=== PATIENT | male | born 1950 | race Caucasian/White ===

== ENCOUNTER → 2016-06-14 | Outpatient (CLI) | payer MEDICARE, MEDICAID ==
[2016-06-14 08:40] LABS: CHLORIDE,CL 101 mmol/L (98-110); SODIUM,NA 139 mmol/L (136-146)
== END ==
LOC: MW.CHFP 07:38
PROVIDERS: ATTEND Emergency Medicine
DX: I10 Essential (primary) hypertension (principal); E78.00 Pure hypercholesterolemia, unspecified; E11.9 Type 2 diabetes mellitus without complications; Z12.5 Encounter for screening for malignant neoplasm of prostate; E78.5 Hyperlipidemia, unspecified
CPT/HCPCS: 36415; 80053; 80061; 82044; 83036; G0103; G0463

== ENCOUNTER 2020-01-24 06:28 | Day surgery (SDC) | payer MEDICARE, MEDICAID ==
[2020-01-24] MEDS ORDERED: Lactated Ringers 1,000 ML IV SCH ×2 (07:00→09:00)
[2020-01-24] MEDS ORDERED: Glycopyrrolate 0.2 MG/ML SDV ONE (07:13)
[2020-01-24] MEDS ORDERED: Lidocaine 2% 5 ML SDV ONE (07:13)
[2020-01-24] MEDS ORDERED: Propofol 200 MG/20 ML SDV ONE ×2 (07:13→08:30)
[2020-01-24] MEDS ORDERED: Midazolam 1 MG/ML 2 ML SDV ONE (07:13)
--- NOTE | 2020-01-24 07:27 | PCM.PREANE ---
Preanesthetic Assessment - Anesthesia/Transfusion/Family Hx Anesthesia History: Prior Anesthesia Without Reaction Other Type of Anesthesia Reaction Comment: father had hard time breathing when waking up from anesthesia Family History of Anesthesia Reaction: No Transfusion History: Prior Transfusion Without Reaction - Review of Systems General: No Symptoms Pulmonary: No Symptoms Cardiovascular: No Symptoms Gastrointestinal: No Symptoms Neurological: No Symptoms Other: Reports: None - Physical Assessment NPO Status Date: 01/23/20 Height: 6 ft 1 in Weight: 102.965 kg ASA Class: 2 Mental Status: Alert & Oriented x3 Airway Class: Mallampati = 2 Dentition: Reports: Edentulous ROM/Head Extension: Full Lungs: Clear to Auscultation, Normal Respiratory Effort Cardiovascular: Regular Rate, Regular Rhythm - Allergies Allergies/Adverse Reactions: Allergies Allergy/AdvReac Type Severity Reaction Status Date / Time lisinopril Allergy Cough Verified 01/20/20 09:46 - Blood Blood Available: No - Anesthesia Plan Pre-Op Medication Ordered: None - Acknowledgements Anesthesia Type Planned: General Anesthesia (tiva) Pt an Appropriate Candidate for the Planned Anesthesia: Yes Alternatives and Risks of Anesthesia Discussed w Pt/Guardian: Yes Pt/Guardian Understands and Agrees with Anesthesia Plan: Yes Additional Comments: PMH: htn, dm2, pvod-s/p aortobifem graft PLAn: tiva PreAnesthesia Questionnaire HEENT History: Reports: Cataract, Other (See Below) Other HEENT History: has upper and lower dentures Cardiovascular History: Reports: High Cholesterol, Hypertension, PVD Respiratory History: Reports: None Gastrointestinal History: Reports: Colon Polyp, Diverticulosis Genitourinary History: Reports: Renal Calculus Other Genitourinary History: hx of passing 1 kidney stone Musculoskeletal History: Reports: Back Pain, Chronic, Neck Pain, Chronic Neurological History: Psychiatric History: Reports: None Endocrine/Metabolic History: Reports: Diabetes, Type II Other Hematologic History: had blood transfusion after bypass graft Immunologic History: Reports: None Oncologic (Cancer) History: Reports: None Dermatologic History: Reports: None - Infectious Disease History Infectious Disease History: Reports: Chicken Pox, Measles Other Infectious Disease History: states when a child - Past Surgical History Head Surgeries/Procedures: HEENT Surgical History: Reports: Cataract Surgery Cardiovascular Surgical History: Reports: Other (See Below) Other Cardiovascular Surgeries/Procedures: Aortic bifemoral bypass graft Respiratory Surgical History: Reports: None GI Surgical History: Reports: Cholecystectomy, Colonoscopy, EGD, Hernia, Abdominal Other GI Surgeries/Procedures: rectal surgery Neurological Surgical History: Reports: Discectomy, Lumbar Spine Other Neurological Surgeries/Procedures: hx lower back surgery Musculoskeletal Surgical History: Reports: Carpal Tunnel, Ganglion Cyst, Other (See Below) Other Musculoskeletal Surgeries/Procedures:: states had lower back surgery Oncologic Surgical History: Reports: None - SUBSTANCE USE Tobacco Use Status *Q: Former Tobacco User Tobacco Use Within Last Twelve Months: No - HOME MEDS Home Medications: Home Meds atorvaSTATin [Lipitor] 20 mg PO DAILY 08/31/14 [History] metFORMIN HCl [Metformin ER Osmotic] 1,000 mg PO BID 08/31/14 [History] Empagliflozin [Jardiance] 25 mg PO DAILY 11/04/19 [History] Losartan Potassium 100 mg PO QAM 11/04/19 [History] Ozempic 0.25 mg SQ WEEKLY 11/04/19 [History] hydroCHLOROthiazide [Hydrochlorothiazide] 25 mg PO QAM 11/04/19 [History] - CURRENT (IN HOUSE) MEDS Current Meds: Current Medications Lactated Ringer's (Ringers, Lactated) 1,000 mls @ 125 mls/hr IV ASDIRECTED ANALY Cefoxitin Sodium 2 gm/ Premix 50 mls @ 100 mls/hr IV ONETIME ONE Stop: 01/24/20 07:59 Discontinued Medications Glycopyrrolate (Robinul) Confirm Administered Dose 0.2 mg .ROUTE .STK-MED ONE Stop: 01/24/20 07:14 Lidocaine (Xylocaine-Mpf 2%) Confirm Administered Dose 5 ml .ROUTE .STK-MED ONE Stop: 01/24/20 07:14 Midazolam HCl (Versed 1 Mg/Ml) Confirm Administered Dose 2 mg .ROUTE .STK-MED ONE Stop: 01/24/20 07:14 Propofol (Diprivan 20 Ml) Confirm Administered Dose 400 mg .ROUTE .STK-MED ONE Stop: 01/24/20 07:14
[2020-01-24] MEDS ORDERED: cefOXitin 2 GM in Premix Bag 1 BAG IV ONE (07:30)
[2020-01-24] MEDS ORDERED: Sodium Chloride 0.9% 20 ML ONE (07:34)
[2020-01-24] MEDS ORDERED: cefOXitin 1 GM Vial ONE (07:34)
--- NOTE | 2020-01-24 09:00 | PCM.OPNOTE ---
- General Post-Op/Procedure Note Date of Surgery/Procedure: 01/24/20 Operative Procedure(s): Esophagogastroduodenoscopy with gastric and esophageal biopsies. Colonoscopy with multiple cold polypectomies from the ascending colon, descending colon, sigmoid colon 2 and rectum. Pre Op Diagnosis: Dysphagia with epigastric pain. Weight loss. Personal history of colon polyps. Change in bowel habits. Post-Op Diagnosis: Acute and chronic gastritis. Esophagitis. Colon polyps in the ascending colon, descending colon, sigmoid colon and rectum. Pancolonic diverticulosis. Anesthesia Technique: ADAMS (ASA II) Primary Surgeon: Drake Brice (ASA II) Transitional Studies Instructor: Pastor Odom Condition: Good Free Text/Narrative:: Intake & Output 01/23/20 01/24/20 01/24/20 19:59 03:59 11:59 Intake Total 900 Balance 900 DICTATION [id number] CPT CODE 68717/88816
--- NOTE | 2020-01-24 09:09 | PCM48HPAN ---
Post Anesthesia Note - EVALUATION WITHIN 48HRS OF ANESTHETIC Vital Signs in Normal Range: Yes Patient Participated in Evaluation: Yes Respiratory Function Stable: Yes Airway Patent: Yes Cardiovascular Function Stable: Yes Hydration Status Stable: Yes Pain Control Satisfactory: Yes Nausea and Vomiting Control Satisfactory: Yes Mental Status Recovered: Yes Vital Signs: Last Vital Signs Temp 97.5 F 01/24/20 07:15 Pulse 90 01/24/20 08:55 Resp 12 01/24/20 08:55 BP 97/59 L 01/24/20 08:55 Pulse Ox 93 L 01/24/20 08:55
--- NOTE | 2020-01-24 09:09 | PCM.POSTAN ---
POST ANESTHESIA ASSESSMENT - MENTAL STATUS Mental Status: Alert, Oriented - VITAL SIGNS Vital Signs: Last Vital Signs Temp 97.5 F 01/24/20 07:15 Pulse 90 01/24/20 08:55 Resp 12 01/24/20 08:55 BP 97/59 L 01/24/20 08:55 Pulse Ox 93 L 01/24/20 08:55 - RESPIRATORY Respiratory Status: Respiratory Rate WNL, Airway Patent, O2 Saturation Stable - CARDIOVASCULAR CV Status: Pulse Rate WNL, Blood Pressure Stable - GASTROINTESTINAL GI Status: No Symptoms - POST OP HYDRATION Hydration Status: Adequate & Stable
[2020-01-24 09:41] VITALS: BP 109/61; PULSE 88
--- NOTE | 2020-01-24 11:13 | OR ---
SURGEON: Drake Brice M.D. DATE OF PROCEDURE: 01/24/2020 OPERATION PERFORMED: Esophagogastroduodenoscopy with gastric and esophageal biopsies. PRIMARY SURGEON: Drake Brice M.D. TIGHT COOPER: OSMAR Gamez student. ANESTHESIA: MAC. ASA CLASSIFICATION: II. PREOPERATIVE DIAGNOSES: 1. Epigastric pain with dysphagia. 2. Unexplained weight loss. POSTOPERATIVE DIAGNOSES: 1. Moderate acute and chronic gastritis. 2. Esophagitis. DESCRIPTION OF PROCEDURE: The patient was taken to the endoscopy room and placed on the endoscopy table in the supine position. Time-out was called for appropriate identification of the patient and procedure. The bite block was placed between the patient's teeth. The gastroscope was inserted through the bite block and advanced without difficulty through the esophagus and stomach into the duodenum where examination was now carried out in a retrograde fashion. The duodenum showed no acute inflammatory changes or ulcerations. The stomach did show a fairly acute gastritis. No acute ulcerations were noted. Antral biopsies were obtained to look for the presence of Helicobacter pylori. The gastroscope was then retroflexed to visualize the proximal stomach. No ulcers or lesions were noted along the greater or lesser curvatures. The gastroscope was then straightened and slowly withdrawn. The distal esophagus did show [id number] esophagitis and separate biopsies of this area were taken. No ulcerations or tears were noted. The esophagus itself demonstrated good contractility. No mid or proximal lesions were identified. The vocal cords were briefly visualized as the scope was withdrawn. Following colonoscopy, the patient was taken to recovery room in stable condition. JESSIKA / GISELLE /[id number] LEXIS
--- NOTE | 2020-01-24 11:17 | OR ---
SURGEON: Drake Brice M.D. DATE OF PROCEDURE: 01/24/2020 OPERATION PERFORMED: Colonoscopy with multiple cold polypectomies from the ascending colon, descending colon, sigmoid colon, and rectum. CHEMIST PHYSICAL: OSMAR Gamez student. ANESTHESIA: MAC. ASA CLASSIFICATION: II. PREOPERATIVE DIAGNOSES: 1. Change in bowel habits with personal history of colon polyps. 2. Weight loss. POSTOPERATIVE DIAGNOSES: 1. Polyps identified and removed from the ascending colon, descending colon, sigmoid colon, and rectum. 2. Pancolonic diverticulosis. DESCRIPTION OF PROCEDURE: With the patient having completed upper GI endoscopy, he was now positioned in the left lateral decubitus position. The colonoscope was inserted into the rectum and advanced with minimal difficulty to the cecum. The colonoscope was retroflexed to visualize the ascending colon from below, then straightened and slowly withdrawn. The prep was quite good. One polyp was encountered in the ascending colon and removed with cold biopsy forceps. The remainder of the ascending colon, hepatic flexure, transverse colon, and splenic flexure did not show any tumors, polyps, or angiodysplastic changes. Multiple small scattered diverticula were noted throughout the colon. A second polyp was encountered in the descending colon and removed with cold biopsy forceps. Two more polyps were encountered in the proximal and mid sigmoid colon and removed and sent separately and finally a rectal polyp was identified and removed and again sent separately for histologic analysis. The colonoscope having been withdrawn to the rectum was now retroflexed to visualize the anal orifice from above. No tumors, polyps, or acute hemorrhoidal changes were noted. The colonoscope was then straightened, the rectum aspirated, and the colonoscope removed. The patient tolerated the procedure well and was taken to recovery room in satisfactory condition. JESSIKA / GISELLE /[id number]
== END 2020-01-24 09:30 | disposition home or self-care (01) ==
LOC: MW.SDS 06:28
PROVIDERS: ATTEND Surgery
DX: D12.2 Benign neoplasm of ascending colon (principal); K29.50 Unspecified chronic gastritis without bleeding; D12.4 Benign neoplasm of descending colon; D12.5 Benign neoplasm of sigmoid colon; D12.8 Benign neoplasm of rectum; K29.00 Acute gastritis without bleeding; K20.90 Esophagitis, unspecified without bleeding; K57.30 Diverticulosis of large intestine without perforation or abscess without bleeding; E78.00 Pure hypercholesterolemia, unspecified; I10 Essential (primary) hypertension; E11.9 Type 2 diabetes mellitus without complications; Z79.84 Long term (current) use of oral hypoglycemic drugs; Z79.899 Other long term (current) drug therapy; Z90.49 Acquired absence of other specified parts of digestive tract; Z98.890 Other specified postprocedural states; Z87.891 Personal history of nicotine dependence; Z86.010 Personal history of colon polyps
CPT/HCPCS: 43239; 45380; J0694; J2001; J2250; J2704; J3490; J7120

== ENCOUNTER 2020-11-22 06:40 | Emergency (ER) | payer MEDICARE, MEDICAID ==
[2020-11-22] MEDS ORDERED: Morphine 4 MG/ML Syringe IVPUSH ONE (07:25)
[2020-11-22 08:09] LABS: BLOOD UREA NITROGEN,BUN 12 mg/dL (7.0-18.0); CARBON DIOXIDE,CO2 28.7 mmol/L (21.0-32.0); CHLORIDE,CL 98 mmol/L (98-107); GLUCOSE RANDOM 215 mg/dL (74-106); LIPASE 144 U/L (73-393); SODIUM,NA 136 mmol/L (136-148)
[2020-11-22] MEDS ORDERED: Iopamidol 755 MG/ML 500 ML Multipack Bottle IVPUSH ONE (09:40)
--- NOTE | 2020-11-22 10:24 | CT ---
HISTORY: Left upper quadrant abdominal pain. COMPARISON: 10/11/2019. TECHNIQUE: CT of the abdomen and pelvis. Coronal/sagittal reconstruction images. 100 cc of [id number] IV. FINDINGS: Lung bases: Coronary artery calcifications. There is no pleural or pericardial effusion. There is no acute airspace disease. There is no suspicious pulmonary nodule. There is no basilar pneumothorax. Abdomen/pelvis: Liver morphology appears cirrhotic, with a nodular surface. There is no solid hepatic mass. There is no portal vein thrombosis. The splenic vein and SMV are patent. No splenomegaly. No adrenal mass. Cholecystectomy. There is no pancreatic mass or glandular atrophy. Calcifications are present within the uncinate process of the pancreas. The nephrograms are symmetric. There is no solid renal mass. There is no perinephric fluid collection. The prostate and urinary bladder are normal. There is no mural thickening in the small bowel or colon. There is no mucosal hyper enhancement. There is no transition point. Moderate constipation. No evidence for appendicitis. There is no inguinal or pelvic sidewall lymphadenopathy. Presumably, the patient has undergone a prior aortobifemoral bypass. 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 There is also focal dilation in a separate infrarenal segment measuring 26 mm. This is unchanged. Postoperative changes in the anterior abdominal wall, presumably from a prior ventral wall hernia repair. The bone windows demonstrate bridging osteophytes at the left SI joint. There is degenerative disc disease in the lower thoracic and lumbar spine. The vertebral body heights are maintained on sagittal reconstruction images. IMPRESSION: 1. No acute findings are seen to explain left upper quadrant abdominal pain. 2. There is no mural thickening, perienteric edema, pneumatosis, portal venous gas, or drainable fluid collection. 3. Cholecystectomy. Normal caliber biliary tree. 4. No abdominal or pelvic lymphadenopathy by size criteria. Please note that all CT scans at this facility use dose modulation, iterative reconstruction, and/or weight-based dosing when appropriate to reduce radiation dose to as low as reasonably achievable. Dictated by Vin Riley MD @ 11/22/2020 10:22:[address] Vin Riley @ Nov 22 2020 10:22AM
--- NOTE | 2020-11-22 10:51 | EDM.PDOC ---
ED HPI GENERAL MEDICAL PROBLEM - General Chief Complaint: Abdominal Pain Stated Complaint: PAIN IN MY LEFT SIDE Time Seen by Provider: 11/22/20 07:05 - History of Present Illness INITIAL COMMENTS - FREE TEXT/NARRATIVE: CHIEF COMPLAINT(S): "I have terrible, terrible, terrible, terrible, terrible pain." HISTORY OF PRESENT ILLNESS: This is a 70-year-old man with a colonoscopy earlier this year and a past medical history of diabetes mellitus and hypertension who comes to the emergency department with a chief complaint of "I have terrible, terrible, terrible, terrible, terrible pain." Patient states that he is having terrible pain. He states that it is right here. He points to his left upper quadrant. He states that it feels like gas is leaking out of his colon and up into his chest and into his back. When asked how the pain feels he describes it as burning like mud puddles with steam. He rates the pain as 7 out of 10 and constant and has not changed. He states that is there 17/10. He states nothing relieves it. Nothing exacerbates it. He states that he tried Tums, Rolaids, Pepto-Bismol, omeprazole and nothing seems to be helping. He states that this pain has been there since he got his colonoscopy approximately 8 to 10 months ago. He denies any hematemesis, melena or hematochezia. He states he has been tolerating food without any issues. REVIEW OF SYSTEMS: Constitutional: Denies fever, chills. Eyes: Denies eye pain Ears, Nose, Mouth, & Throat: Denies earache Cardiovascular: Denies chest pain Respiratory: Denies shortness of breath Gastrointestinal: Positive for abdominal pain. Denies nausea, vomiting, diarrhea, hematochezia, hematemesis, bilious emesis, melena Genitourinary: Denies hematuria Skin:Denies a rash MSK: Denies joint pain Neurological: Denies blurred vision Psychiatric: Denies depression PAST MEDICAL HISTORY: As per history of present illness and as reviewed below otherwise noncontributory. SURGICAL HISTORY: As per history of present illness and as reviewed below otherwise noncontributory. SOCIAL HISTORY: As per history of present illness and as reviewed below otherwise noncontributory. FAMILY HISTORY: As per history of present illness and as reviewed below otherwise noncontributory. EXAMINATION OF ORGAN SYSTEMS/BODY AREAS: Constitutional: Blood pressure is 126/83, heart rate 101, respiratory rate 18 with an oxygen saturation of 96% on room air. Temperature 37.0. General: Overall well-appearing man who is in no acute distress Psychiatric: Appropriate mood and affect. Eyes: No scleral icterus or conjunctival erythema ENMT: Moist mucous membranes. No pharyngeal erythema Cardiovascular: Regular, rate, and rhythm. No gallops, murmurs, or rubs. Bilateral upper extremity pulses symmetric and intact. No peripheral edema. No JVD. Respiratory: Lungs clear to auscultation bilaterally. No wheezes, rales, or rhonchi. Gastrointestinal: Soft, non-tender, non-distended. Normoactive bowel sounds no rebound or guarding. Genitourinary: No suprapubic tenderness Musculoskeletal: Normal range of motion. Skin: No lesions or abrasions. Neurological: Alert, GCS 15 MEDICAL DECISION MAKING AND COURSE IN THE ED WITH INTERPRETATION/REVIEW OF DIAGNOSTIC STUDIES: This is a 70-year-old man with a past medical history of diabetes mellitus and hypertension who comes to the emergency department with acute on chronic abdominal pain who has mild tachycardia and an unrevealing examination. At this time we will provide the patient with morphine for pain relief and obtain labs including CBC, CMP, lipase. Will obtain a CT abdomen pelvis with contrast. Differential is broad at this time as the patient's exam is nonfocal this could be gastritis, GERD, pancreatitis, peptic ulcer disease, appendicitis, cholecystitis. Laboratory: Glucose was elevated at 211. CBC is unremarkable. CMP reveals hyperglycemia at 215 and elevated bilirubin of 1.1. The radiological images were viewed by myself along with reading the report from the radiologist. CT abdomen pelvis with contrast does not reveal any acute intra-abdominal pathology. His aortic aneurysm has not changed. On reevaluation I discussed the results with patient. Encourage the patient to follow-up with his primary care physician for further reevaluation and possible referral for GI. He is to return for any new or worsening symptoms. He was amenable to discharge at this time and had no further questions DISPOSITION: The patient was discharged home in stable condition. The patient will follow up with primary care physician in 3 to 5 days CONDITION: Fair PROCEDURES: None FINAL IMPRESSION(S)/DIAGNOSES: 1. Acute abdominal pain Alireza Stubbs M.D. Left Upper Abdomen Pain Score (Numeric/FACES): 7 - Related Data Allergies Allergy/AdvReac Type Severity Reaction Status Date / Time lisinopril Allergy Cough Verified 11/22/20 07:01 Home Meds: Home Meds atorvaSTATin [Lipitor] 20 mg PO DAILY 08/31/14 [History] metFORMIN HCl [Metformin ER Osmotic] 1,000 mg PO BID 08/31/14 [History] Empagliflozin [Jardiance] 25 mg PO DAILY 11/04/19 [History] Losartan Potassium 100 mg PO QAM 11/04/19 [History] Ozempic 50 mcg SQ WEEKLY 11/04/19 [History] hydroCHLOROthiazide [Hydrochlorothiazide] 25 mg PO QAM 11/04/19 [History] Pantoprazole [ProTONIX] 40 mg PO DAILY #14 tab.cr 11/22/20 [Rx] Past Medical History HEENT History: Reports: Cataract, Other (See Below) Other HEENT History: has upper and lower dentures Cardiovascular History: Reports: High Cholesterol, Hypertension, PVD Respiratory History: Reports: None Gastrointestinal History: Reports: Colon Polyp, Diverticulosis Genitourinary History: Reports: Renal Calculus Other Genitourinary History: hx of passing 1 kidney stone Musculoskeletal History: Reports: Back Pain, Chronic, Neck Pain, Chronic Neurological History: Reports: None Psychiatric History: Reports: None Endocrine/Metabolic History: Reports: Diabetes, Type II Hematologic History: Reports: Other (See Below) Other Hematologic History: had blood transfusion after bypass graft Immunologic History: Reports: None Oncologic (Cancer) History: Reports: None Dermatologic History: Reports: None - Infectious Disease History Infectious Disease History: Reports: Chicken Pox, Measles Other Infectious Disease History: states when a child - Past Surgical History HEENT Surgical History: Reports: Cataract Surgery Cardiovascular Surgical History: Reports: Other (See Below) Other Cardiovascular Surgeries/Procedures: Aortic bifemoral bypass graft Respiratory Surgical History: Reports: None GI Surgical History: Reports: Cholecystectomy, Colonoscopy, EGD, Hernia, Abdominal Other GI Surgeries/Procedures: rectal surgery Neurological Surgical History: Reports: Discectomy, Lumbar Spine Other Neurological Surgeries/Procedures: hx lower back surgery Musculoskeletal Surgical History: Reports: Carpal Tunnel, Ganglion Cyst, Other (See Below) Other Musculoskeletal Surgeries/Procedures:: states had lower back surgery Oncologic Surgical History: Reports: None Social & Family History - Tobacco Use Tobacco Use Status *Q: Never Tobacco User Second Hand Smoke Exposure: No - Recreational Drug Use Recreational Drug Use: No ED ROS GENERAL - Review of Systems Review Of Systems: See Below ED EXAM, GENERAL - Physical Exam Exam: See Below Course - Vital Signs Last Recorded V/S: Last Vital Signs Temp 37.0 C 11/22/20 07:02 Pulse 88 11/22/20 11:09 Resp 18 11/22/20 11:09 BP 125/79 11/22/20 11:09 Pulse Ox 95 11/22/20 11:09 - Orders/Labs/Meds Labs: Laboratory Tests 11/22/20 11/22/20 11/22/20 Range/Units 07:19 07:37 07:37 WBC 6.08 (4.0-11.0) K/uL RBC 4.99 (4.50-5.90) M/uL Hgb 16.1 (13.0-17.0) g/dL Hct 44.7 (38.0-50.0) % MCV 89.6 (80.0-98.0) fL MCH 32.3 H (27.0-32.0) pg MCHC 36.0 (31.0-37.0) g/dL RDW Std Deviation 44.5 (28.0-62.0) fl RDW Coeff of Kate 14 (11.0-15.0) % Plt Count 176 (150-400) K/uL MPV 9.90 (7.40-12.00) fL Neut % (Auto) 41.3 L (48.0-80.0) % Lymph % (Auto) 42.1 H (16.0-40.0) % Hooker % (Auto) 10.4 (0.0-15.0) % Eos % (Auto) 5.4 (0.0-7.0) % Baso % (Auto) 0.8 (0.0-1.5) % Neut # (Auto) 2.5 (1.4-5.7) K/uL Lymph # (Auto) 2.6 H (0.6-2.4) K/uL Hooker # (Auto) 0.6 (0.0-0.8) K/uL Eos # (Auto) 0.3 (0.0-0.7) K/uL Baso # (Auto) 0.1 (0.0-0.1) K/uL Nucleated RBC % 0.0 /100WBC Nucleated RBCs # 0 K/uL Sodium 136 (136-148) mmol/L Potassium 4.0 (3.5-5.1) mmol/L Chloride 98 (98-107) mmol/L Carbon Dioxide 28.7 (21.0-32.0) mmol/L BUN 12 (7.0-18.0) mg/dL Creatinine 0.9 (0.8-1.3) mg/dL Est Cr Clr Drug Dosing 81.43 mL/min Estimated GFR (MDRD) > 60.0 ml/min Glucose 215 H (74-106) mg/dL POC Glucose 211 H (70-99) mg/dL Calcium 9.3 (8.5-10.1) mg/dL Magnesium 2.2 (1.8-2.4) mg/dL Total Bilirubin 1.1 H (0.2-1.0) mg/dL AST 31 (15-37) IU/L ALT 42 (14-63) IU/L Alkaline Phosphatase 112 (46-116) U/L Total Protein 7.3 (6.4-8.2) g/dL Albumin 3.8 (3.4-5.0) g/dL Globulin 3.5 (2.6-4.0) g/dL Albumin/Globulin Ratio 1.1 (0.9-1.6) Lipase 144 (73-393) U/L Meds: Medications Discontinued Medications Generic Name Dose Route Start Last Admin Trade Name Freq PRN Reason Stop Dose Admin Iopamidol 100 ml 11/22/20 09:40 11/22/20 09:41 Iopamidol 755 Mg/Ml 500 Ml Multipack Bottle IVPUSH 11/22/20 09:41 100 ml ONETIME ONE Administration Morphine Sulfate 4 mg 11/22/20 07:25 11/22/20 07:47 Morphine 4 Mg/Ml Syringe IVPUSH 11/22/20 07:26 4 mg ONETIME ONE Administration Departure - Departure Time of Disposition: 10:49 Disposition: Home, Self-Care 01 Condition: Fair Clinical Impression: Esophagitis, Gastritis - Discharge Information *PRESCRIPTION DRUG MONITORING PROGRAM REVIEWED*: No *COPY OF PRESCRIPTION DRUG MONITORING REPORT IN PATIENT LOW: No Prescriptions: Pantoprazole [ProTONIX] 40 mg PO DAILY #14 tab.cr Instructions: Gastritis, Adult, [id number], Esophagitis Referrals: Montez Cameron MD [Primary Care Provider] - Forms: ED Department Discharge Additional Instructions: Your evaluated today on an emergent basis. At this time your imaging was unchanged from prior. Given your history of inflammation of your esophagus and your stomach called esophagitis and gastritis I do believe this is the pain you are experiencing. You are already on omeprazole. Therefore at this time let us trial pantoprazole daily and I want you to follow-up with your primary care physician within 5 to 7 days for reevaluation. As discussed you may need a referral for gastroenterology if you have continued pain and issues. Please return to the emergency department if you have any blood in your stool, blood in your vomit, or have worsening abdominal pain. [facility] [address] [place] [address] [place] [address] The patient is informed of any results of their evaluation and diagnostic workup and all questions are answered. They are given discharge instructions and return precautions. The patient is stable for discharge. The patient states they understand and agree with the plan and that they will return if their symptoms get worse or if they have any new concerns. The following information is given to patients seen in the emergency department who are being discharged to home. This information is to outline your options for follow-up care. We provide all patients seen in our emergency department with a follow-up referral. The need for follow-up, as well as the timing and circumstances, are variable depending upon the specifics of your emergency department visit. If you don't have a primary care physician on staff, we will provide you with a referral. We always advise you to contact your personal physician following an emergency department visit to inform them of the circumstance of the visit and for follow-up with them and/or the need for any referrals to a consulting specialist. The emergency department will also refer you to a specialist when appropriate. This referral assures that you have the opportunity for follow-up care with a specialist. All of these measure are taken in an effort to provide you with optimal care, which includes your follow-up. Under all circumstances we always encourage you to contact your private physician who remains a resource for coordinating your care. When calling for follow-up care, please make the office aware that this follow-up is from your recent emergency room visit. If for any reason you are refused follow-up, please contact the [facility] Emergency Department at and asked to speak to the emergency department charge nurse.
[2020-11-22 11:15] VITALS: BP 125/79; PULSE 88
== END 2020-11-22 11:09 | disposition home or self-care (01) ==
LOC: MW.ED 06:40
DX: K29.70 Gastritis, unspecified, without bleeding (principal); K20.90 Esophagitis, unspecified without bleeding; E11.9 Type 2 diabetes mellitus without complications; I10 Essential (primary) hypertension; Z88.8 Allergy status to other drugs, medicaments and biological substances; Z79.899 Other long term (current) drug therapy; Z79.84 Long term (current) use of oral hypoglycemic drugs
CPT/HCPCS: 36415; 74177; 80053; 82947; 83690; 83735; 85025; 96374; 99284; J2270; Q9967; 99283

== ENCOUNTER 2021-04-03 05:01 | Emergency (ER) | payer MEDICARE, MEDICAID ==
--- NOTE | 2021-04-03 05:48 | EDM.PDOC ---
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 The patient states that approximately 12 hours prior to arrival he started to experience [place]-sided [place] He states that he noticed it when he stood up and noticed that his left arm and left leg were weak. He denies any trouble seeing, headache, falls or any other injury. He denies any use of anticoagulation. He denies any chest pain, palpitations, lo wer extremity edema, recent travel, recent surgery or prior history of DVT or PE. States that he has never had a stroke before. She denies any CAD or CHF REVIEW OF SYSTEMS: Constitutional: Denies fever, chills. Eyes: Denies eye pain Ears, Nose, Mouth, & Throat: Denies earache Cardiovascular: Denies chest pain Respiratory: Denies shortness of breath Gastrointestinal: Denies Nausea, vomiting, diarrhea, hematochezia. Genitourinary: Denies hematuria Skin:Denies a rash Neurological: Positive for left arm and left leg weakness. Denies trouble speaking, swallowing. Denies any double vision or loss of vision. Psychiatric: Denies depression PAST MEDICAL HISTORY: As per history of present illness and as reviewed below otherwise noncontributory. SURGICAL HISTORY: As per history of present illness and as reviewed below otherwise noncontributory. SOCIAL HISTORY: As per history of present illness and as reviewed below otherwise noncontributory. FAMILY HISTORY: As per history of present illness and as reviewed below otherwise noncontributory. EXAMINATION OF ORGAN SYSTEMS/BODY AREAS: VITALS:. GENERAL: The patient is well-nourished, well-developed, in no acute distress. HEAD: Normocephalic, atraumatic. EYES: EOMs intact. PERRL. ENT. External ears WNL. Nares patent. Oropharynx is clear with no erythema or exudate. No uvular or tongue swelling. NECK: Supple, no masses. Trachea is midline. LUNGS: No tachypnea or intercostal retractions. Clear to auscultation bilaterally, no wheezing, no rales, no stridor, no rhonchi. CARDIOVASCULAR: Regular rate and rhythm with S1-S2. No murmur, rubs or gallops. No edema. No JVD. ABDOMEN: Soft, non-distended, non-tender. Bowel sounds present in all 4 quadrants. No rebound tenderness, guarding, or peritoneal signs. MUSCULOSKELETAL: No deformity. Patient is moving all 4 limbs spontaneously. NEUROLOGICAL: The patient is alert and oriented x4. Patient's face at rest has a left-sided facial droop however when actively smiling there does not appear to be any facial droop. Otherwise NIH stroke scale is five four obvious droop at rest on the left side of the face, left arm weakness, left leg weakness, and mild slurring of the speech. SKIN: No rashes, or pallor. No signs of injury. MEDICAL DECISION MAKING AND COURSE IN THE ED WITH INTERPRETATION/REVIEW OF DIAGNOSTIC STUDIES: This is a 71-year-old man with a past medical history of diabetes mellitus, hypertension and prior history of aortic bypass who presents to the emergency department as a medical resuscitation via walk-in triage with a chief complaint of left arm and left leg weakness. Immediately upon entering the resuscitation room the patient was disrobed, placed on continuous cardiac monitoring, and IV access was established by nursing. Patient is able to speak thus displaying a patent airway, breath sounds are equal bilaterally, and patient has palpable pulses in all 4 extremities. [id number] glucose was found to be elevated. NIH stroke scale is five. The patient is outside the TPA window however we will undergo a stroke work-up. Will obtain CT head and CTA of the head and neck. Obtain labs including CBC, CMP, chest x-ray and place the patient on cardiac monitoring and pulse oximetry. Cardiac monitoring at this time did reveal sinus rhythm and pulse oximetry with good waveform was 98% on room air. Laboratory: CBC is unremarkable. INR is normal. CMP reveals hyperglycemia at 263 otherwise unremarkable. There is mild elevation in total bilirubin at 1.8. Troponin is negative. TSH is 2.8. Covid is positive. Influenza is negative The radiological images were viewed by myself along with reading the report from the radiologist. CT head without contrast does not reveal any acute intracranial abnormality. No sign of mass lesion, mass-effect or hemorrhage. There is moderate right and mild left mastoid effusion consistent with mastoiditis. This is a normal noncontrast CT of the head. CTA of the head and neck does not reveal any large vessel occlusion or aneurysm. Chest x-ray does not reveal any acute cardiopulmonary process. After labs and imaging I did contact [facility] and spoke with neurologist Dr. Toney who at this time recommended transfer and to start the patient on aspirin and Plavix. At this time there is no evidence of any large vessel occlusion therefore there is no need for thrombectomy. He did recommend MRI. Therefore I did discuss this with the ER physician Dr. Grimaldo who also accepted the patient for transfer. I did discuss the results with the patient I did discuss transfer to [facility] in [place]. He was amenable to this plan. At this time given no emergent intervention the patient will be transferred via ALS ambulance. At this time there is no available ambulance for 2 hours. The patient was signed out to [facility] day team physician pending transfer DISPOSITION: Patient was signed out to [facility] day team physician pending transfer to [facility] CONDITION: Fair FINAL IMPRESSION(S)/DIAGNOSES: 1. Acute cerebrovascular accident 2. Acute COVID-19 infection Critical Care Procedure Note Authorized and performed by: Alireza Stubbs M.D. Critical Care Time: 35 minutes Due to a high probability of clinically significant, life threatening deterioration, the patient required my highest level of preparedness to intervene emergently and I personally spent this critical care time directly and personally managing the patient. This critical care time included obtaining a history, examining the patient, pulse oximetry; ordering and review of studies; arranging urgent treatment with development of a management plan; evaluation of a patients reponse to treatment; frequent assessment; and discussions with other providers. This critical care time was performed to assess and manage the high probability of imminent, life threatening deterioration that could result in multiorgan failure. It was exclusive of separate billable procedures and treating other patients. Please see MDM section and rest of the note for further information on patient assessment and treatment. Please see MDM section and rest of the note for further information on patient assessment and treatment. - Related Data Allergies Allergy/AdvReac Type Severity Reaction Status Date / Time lisinopril Allergy Cough Verified 04/03/21 05:52 Home Meds: Home Meds atorvaSTATin [Lipitor] 20 mg PO DAILY 08/31/14 [History] metFORMIN HCl [Metformin ER Osmotic] 1,000 mg PO BID 08/31/14 [History] Empagliflozin [Jardiance] 25 mg PO DAILY 11/04/19 [History] Losartan Potassium 100 mg PO QAM 11/04/19 [History] Ozempic 50 mcg SQ WEEKLY 11/04/19 [History] hydroCHLOROthiazide [Hydrochlorothiazide] 25 mg PO QAM 11/04/19 [History] Pantoprazole [ProTONIX] 40 mg PO DAILY #14 tab.cr 11/22/20 [Rx] Past Medical History HEENT History: Reports: Cataract, Other (See Below) Other HEENT History: has upper and lower dentures Cardiovascular History: Reports: High Cholesterol, Hypertension, PVD Respiratory History: Reports: None Gastrointestinal History: Reports: Colon Polyp, Diverticulosis Genitourinary History: Reports: Renal Calculus Other Genitourinary History: hx of passing 1 kidney stone Musculoskeletal History: Reports: Back Pain, Chronic, Neck Pain, Chronic Neurological History: Reports: None Psychiatric History: Reports: None Endocrine/Metabolic History: Reports: Diabetes, Type II Hematologic History: Reports: Other (See Below) Other Hematologic History: had blood transfusion after bypass graft Immunologic History: Reports: None Oncologic (Cancer) History: Reports: None Dermatologic History: Reports: None - Infectious Disease History Infectious Disease History: Reports: Chicken Pox, Measles Other Infectious Disease History: states when a child - Past Surgical History HEENT Surgical History: Reports: Cataract Surgery Cardiovascular Surgical History: Reports: Other (See Below) Other Cardiovascular Surgeries/Procedures: Aortic bifemoral bypass graft Respiratory Surgical History: Reports: None GI Surgical History: Reports: Cholecystectomy, Colonoscopy, EGD, Hernia, Abdo kp Other GI Surgeries/Procedures: rectal surgery Neurological Surgical History: Reports: Discectomy, Lumbar Spine Other Neurological Surgeries/Procedures: hx lower back surgery Musculoskeletal Surgical History: Reports: Carpal Tunnel, Ganglion Cyst, Other (See Below) Other Musculoskeletal Surgeries/Procedures:: states had lower back surgery Oncologic Surgical History: Reports: None ED ROS GENERAL - Review of Systems Review Of Systems: See Below ED EXAM, GENERAL - Physical Exam Exam: See Below Departure - Departure Time of Disposition: 06:24 Disposition: DC/Tfer to Acute Hospital 02 Condition: Fair Clinical Impression: Cerebrovascular accident (CVA) Qualifiers: CVA mechanism: unspecified Qualified Code(s): I63.9 - Cerebral infarction, unspecified - Discharge Information Referrals: PCP,None [Primary Care Provider] - Forms: ED Department Discharge <Romero Cabrera Tessy - Last Filed: 04/03/21 08:44> Course - Vital Signs Last Recorded V/S: Last Vital Signs Temp 97.8 F 04/03/21 05:06 Pulse 84 04/03/21 07:58 Resp 20 04/03/21 07:58 BP 147/87 H 04/03/21 07:58 Pulse Ox 95 04/03/21 07:58 Orthostatic Blood Pressure [ 97/52 Standing] Orthostatic Blood Pressure [ 125/75 Sitting] Orthostatic Blood Pressure [ 117/64 Supine] - Orders/Labs/Meds Orders: Active Orders 24 hr Category Date Time Status Cardiac Monitoring [RC] . DIRECTED Care 04/03/21 05:18 Active Orthostatic Vital Signs [RC] ASDIRECTED Care 04/03/21 05:18 Active Labs: Laboratory Tests 04/03/21 04/03/21 04/03/21 Range/Units 05:20 05:20 05:20 WBC 9.93 (4.0-11.0) K/uL RBC 5.11 (4.50-5.90) M/uL Hgb 16.3 (13.0-17.0) g/dL Hct 45.9 (38.0-50.0) % MCV 89.8 (80.0-98.0) fL MCH 31.9 (27.0-32.0) pg MCHC 35.5 (31.0-37.0) g/dL RDW Std Deviation 44.1 (28.0-62.0) fl RDW Coeff of Kate 13 (11.0-15.0) % Plt Count 191 (150-400) K/uL MPV 10.40 (7.40-12.00) fL Neut % (Auto) 65.6 (48.0-80.0) % Lymph % (Auto) 27.3 (16.0-40.0) % [place] % (Auto) 6.5 (0.0-15.0) % Eos % (Auto) 0.4 (0.0-7.0) % Baso % (Auto) 0.2 (0.0-1.5) % Neut # (Auto) 6.5 H (1.4-5.7) K/uL Lymph # (Auto) 2.7 H (0.6-2.4) K/uL [place] # (Auto) 0.7 (0.0-0.8) K/uL Eos # (Auto) 0.0 (0.0-0.7) K/uL Baso # (Auto) 0.0 (0.0-0.1) K/uL Nucleated RBC % 0.0 /100WBC Nucleated RBCs # 0 K/uL INR 1.06 Sodium 137 (136-148) mmol/L Potassium 3.6 (3.5-5.1) mmol/L Chloride 99 (98-107) mmol/L Carbon Dioxide 21.0 (21.0-32.0) mmol/L BUN 16 (7.0-18.0) mg/dL Creatinine 1.0 (0.8-1.3) mg/dL Est Cr Clr Drug Dosing TNP Estimated GFR (MDRD) > 60.0 ml/min Glucose 263 H (74-106) mg/dL Calcium 10.2 H (8.5-10.1) mg/dL Total Bilirubin 1.8 H (0.2-1.0) mg/dL AST 21 (15-37) IU/L ALT 27 (14-63) IU/L Alkaline Phosphatase 97 (46-116) U/L Troponin I < 0.050 (0.000-0.056) ng/mL Total Protein 7.7 (6.4-8.2) g/dL Albumin 3.9 (3.4-5.0) g/dL Globulin 3.8 (2.6-4.0) g/dL Albumin/Globulin Ratio 1.0 (0.9-1.6) TSH, Ultra Sensitive 2.80 (0.36-3.74) uIU/mL Influenza Type A RNA (NEGATIVE) Influenza Type B RNA (NEGATIVE) SARS-CoV-2 RNA (MARKUS) (NEGATIVE) 04/03/21 Range/Units 05:56 WBC (4.0-11.0) K/uL RBC (4.50-5.90) M/uL Hgb (13.0-17.0) g/dL Hct (38.0-50.0) % MCV (80.0-98.0) fL MCH (27.0-32.0) pg MCHC (31.0-37.0) g/dL RDW Std Deviation (28.0-62.0) fl RDW Coeff of Kate (11.0-15.0) % Plt Count (150-400) K/uL MPV (7.40-12.00) fL Neut % (Auto) (48.0-80.0) % Lymph % (Auto) (16.0-40.0) % [place] % (Auto) (0.0-15.0) % Eos % (Auto) (0.0-7.0) % Baso % (Auto) (0.0-1.5) % Neut # (Auto) (1.4-5.7) K/uL Lymph # (Auto) (0.6-2.4) K/uL [place] # (Auto) (0.0-0.8) K/uL Eos # (Auto) (0.0-0.7) K/uL Baso # (Auto) (0.0-0.1) K/uL Nucleated RBC % /100WBC Nucleated RBCs # K/uL INR Sodium (136-148) mmol/L Potassium (3.5-5.1) mmol/L Chloride (98-107) mmol/L Carbon Dioxide (21.0-32.0) mmol/L BUN (7.0-18.0) mg/dL Creatinine (0.8-1.3) mg/dL Est Cr Clr Drug Dosing Estimated GFR (MDRD) ml/min Glucose (74-106) mg/dL Calcium (8.5-10.1) mg/dL Total Bilirubin (0.2-1.0) mg/dL AST (15-37) IU/L ALT (14-63) IU/L Alkaline Phosphatase (46-116) U/L Troponin I (0.000-0.056) ng/mL Total Protein (6.4-8.2) g/dL Albumin (3.4-5.0) g/dL Globulin (2.6-4.0) g/dL Albumin/Globulin Ratio (0.9-1.6) TSH, Ultra Sensitive (0.36-3.74) uIU/mL Influenza Type A RNA NEGATIVE (NEGATIVE) Influenza Type B RNA NEGATIVE (NEGATIVE) SARS-CoV-2 RNA (MARKUS) POSITIVE H (NEGATIVE) Meds: Medications Discontinued Medications Generic Name Dose Route Start Last Admin Trade Name Freq PRN Reason Stop Dose Admin Aspirin 324 mg 04/03/21 06:08 04/03/21 06:35 Aspirin 81 Mg Tab.Chew PO 04/03/21 06:09 324 mg ONETIME ONE Administration Clopidogrel Bisulfate 150 mg 04/03/21 06:09 04/03/21 06:36 Clopidogrel 75 Mg Tab PO 04/03/21 06:10 150 mg ONETIME ONE Administration Iopamidol 100 ml 04/03/21 05:58 04/03/21 05:59 Iopamidol 755 Mg/Ml 500 Ml Multipack Bottle IVPUSH 04/03/21 05:59 100 ml ONETIME ONE Administration - Re-Assessments/Exams Free Text/Narrative Re-Assessment/Exam: 04/03/21 07:00 Patient care transitioned from night-team physician Dr. Stubbs pending transfer to [facility] for CVA. 04/03/21 08:44 EMS arrived for patient transport. Patient stable at time of transfer without new symptoms. Sepsis Event Note (ED) - Focused Exam Vital Signs: Vital Signs Temp Pulse Resp BP Pulse Ox 04/03/21 07:58 84 20 147/87 H 95 04/03/21 07:08 78 16 137/84 94 L 04/03/21 05:06 97.8 F 104 H 18 159/80 H 97
--- NOTE | 2021-04-03 05:50 | CT ---
INDICATION: Left-sided weakness beginning 12 hours ago. COMPARISON: None available. TECHNIQUE: CT examination of the head was performed with 2 and 5 mm thick axial and 2 mm thick coronal and sagittal sections without intravenous contrast. Images were obtained from the vertex of the skull through the skull base, and I examined the images with the brain and bone windows. Please note that all CT scans at this facility use dose modulation, iterative reconstruction, and/or weight-based dosing when appropriate to reduce radiation dose to as low as reasonably achievable. FINDINGS: : The brain is normal in appearance for the patient`s age on today`s study, with no sign of mass lesion, mass effect, hemorrhage, or edema. There is moderate dilatation of the ventricles and sulci representing moderate, age-appropriate atrophy. The visualized portions of the orbits are normal in appearance status post cataract surgery. The visualized portions of the paranasal sinuses are clear. There are moderate right and mild left mastoid effusions consistent with mastoiditis. The osseous structures are normal in their appearance with no sign of abnormality in the skull base or calvarium. There is cerumen in the external auditory canals bilaterally, prominent on the right and moderate on the left. IMPRESSION: Normal noncontrast CT of the head for the patient`s age. Moderate, age-appropriate atrophy. Moderate right and mild left mastoid effusions consistent with mastoiditis. Please note that all CT scans at this facility use dose modulation, iterative reconstruction, and/or weight-based dosing when appropriate to reduce radiation dose to as low as reasonably achievable. Dictated by Elmer Marino MD @ 04/03/2021 5:49:31 AM (Electronically Signed)
--- NOTE | 2021-04-03 05:55 | CT ---
DATE: 04/03/2021. CLINICAL HISTORY: Left-sided weakness. TECHNIQUE: Standard helical CT image acquisition through the head and neck was performed after intravenous contrast bolus enhancement. Multiplanar reconstructed images were performed and interpreted. COMPARISON: None available. FINDINGS: The origins of the great vessels from the aortic arch are patent. The origins of the right and left vertebral arteries are patent. The common carotid arteries are patent. No significant luminal stenoses of the proximal internal carotid arteries by NASCET criteria. The more distal cervical segments of the internal carotid arteries are patent. The cervical segments of the vertebral arteries are patent. No intracranial proximal large vessel occlusion or flow-limiting luminal stenosis. The visualized lung apices are unremarkable. The thyroid gland is unremarkable. Degenerative changes of the cervical spine. IMPRESSION: 1. No intracranial proximal large vessel occlusion or flow-limiting luminal stenosis. 2. Patent cervical arterial vasculature without hemodynamically significant luminal stenosis. Please note that all CT scans at this facility use dose modulation, iterative reconstruction, and/or weight-based dosing when appropriate to reduce radiation dose to as low as reasonably achievable. Dictated by Steve Jimenez MD @ 04/03/2021 8:24:12 AM (Electronically Signed)
--- NOTE | 2021-04-03 05:57 | CR ---
INDICATION: Left-sided weakness. COMPARISON: Chest two views from 07/08/2009 FINDINGS: An erect single view of the chest was obtained at 0535 hours. The lungs remain clear. No focal or diffuse infiltrates are present. The heart remains normal in size. The mediastinum is normal in appearance. The osseous structures are normal in appearance for the patient`s age. IMPRESSION: Normal chest single view. Dictated by Elmer Marino MD @ 04/03/2021 5:56:50 AM (Electronically Signed)
[2021-04-03] MEDS ORDERED: Iopamidol 755 MG/ML 500 ML Multipack Bottle IVPUSH ONE (05:58)
--- NOTE | 2021-04-03 06:02 | PCM.EKG ---
#1 Interpretation EKG Date: 04/03/21 Time: 05:40 Rhythm: NSR Rate (Beats/Min): 89 [place]: Normal P-Wave: Present QRS: Normal ST-T: Normal QT: Normal Comparison: No Change (10/08/14) EKG Interpretation Comments: Sinus Rhythm with occasional PVC
[2021-04-03 06:03] LABS: BLOOD UREA NITROGEN,BUN 16 mg/dL (7.0-18.0); CHLORIDE,CL 99 mmol/L (98-107); GLUCOSE RANDOM 263 mg/dL (74-106); POTASSIUM,K 3.6 mmol/L (3.5-5.1); SODIUM,NA 137 mmol/L (136-148)
[2021-04-03] MEDS ORDERED: Aspirin 81 MG Tab.Chew PO ONE (06:08)
[2021-04-03] MEDS ORDERED: Clopidogrel 75 MG Tab PO ONE (06:09)
[2021-04-03 06:39] LABS: CORONAVIRUS COVID-19 NAA POSITIVE (NEGATIVE); INFLUENZA A NAA NEGATIVE (NEGATIVE); INFLUENZA B NAA NEGATIVE (NEGATIVE)
[2021-04-03 08:06] VITALS: BP 147/87; PULSE 84
== END 2021-04-03 09:00 ==
LOC: MW.ED 05:01
DX: I63.9 Cerebral infarction, unspecified (principal); U07.1 COVID-19; E78.00 Pure hypercholesterolemia, unspecified; I10 Essential (primary) hypertension; E11.9 Type 2 diabetes mellitus without complications; Z88.8 Allergy status to other drugs, medicaments and biological substances; Z79.899 Other long term (current) drug therapy; Z79.84 Long term (current) use of oral hypoglycemic drugs
CPT/HCPCS: 0240U; 36415; 70450; 70496; 70498; 71045; 80053; 84443; 84484; 85025; 85610; 93005; 99285; A9270; Q9967

== ENCOUNTER 2021-04-06 08:46 | Emergency (ER) | payer MEDICARE, MEDICAID ==
[2021-04-06 08:54] VITALS: BP 113/77; PULSE 102
== END 2021-04-06 09:21 | disposition home or self-care (01) ==
LOC: MW.ED 08:46
DX: G45.9 Transient cerebral ischemic attack, unspecified (principal); I10 Essential (primary) hypertension; E11.9 Type 2 diabetes mellitus without complications; Z88.8 Allergy status to other drugs, medicaments and biological substances; Z79.82 Long term (current) use of aspirin; Z79.899 Other long term (current) drug therapy; Z79.84 Long term (current) use of oral hypoglycemic drugs
CPT/HCPCS: 99283

== ENCOUNTER 2023-11-14 23:17 | Emergency (ER) | payer MEDICARE, MEDICAID | END 2023-11-15 01:32 | disposition left against medical advice (07) | LOC: MW.ED 23:17 | DX: Z53.21 Procedure and treatment not carried out due to patient leaving prior to being seen by health care provider (principal) ==

== ENCOUNTER 2023-12-13 08:12 | Day surgery (SDC) | payer MEDICARE, MEDICAID ==
[2023-12-13] MEDS: Lactated Ringers 1,000 ML IV SCH (08:36)
[2023-12-13] MEDS ORDERED: dexmedeTOMIDine HCl 200 MCG/2 ML SDV ONE (08:59)
[2023-12-13] MEDS ORDERED: Propofol 200 MG/20 ML SDV ONE (08:59)
[2023-12-13] MEDS ORDERED: Water For Injection, Sterile 20 ML ONE (08:59)
[2023-12-13 10:00] VITALS: BP 134/72; PULSE 68
== END 2023-12-13 10:10 | disposition home or self-care (01) ==
LOC: MW.SDS 08:12
PROVIDERS: ATTEND Surgery
DX: K29.50 Unspecified chronic gastritis without bleeding (principal); K31.89 Other diseases of stomach and duodenum; K20.90 Esophagitis, unspecified without bleeding; K21.9 Gastro-esophageal reflux disease without esophagitis; E78.00 Pure hypercholesterolemia, unspecified; I10 Essential (primary) hypertension; E11.9 Type 2 diabetes mellitus without complications; Z79.82 Long term (current) use of aspirin; Z79.899 Other long term (current) drug therapy; Z79.84 Long term (current) use of oral hypoglycemic drugs; Z87.891 Personal history of nicotine dependence
CPT/HCPCS: 43239; J2704; J7120; 00731; 88305; 99100; J3490

== ENCOUNTER 2024-03-17 13:42 | Emergency (ER) | payer MEDICARE, MEDICAID ==
[2024-03-17 15:04] LABS: BASOPHILS ABSOLUTE AUTO 0.06 K/uL (0.00-0.20); EOSINOPHILS ABSOLUTE AUTO 0.18 K/uL (0.00-0.45); EOSINOPHILS PERCENT AUTO 2.9 % (0.0-6.0); HEMATOCRIT 43.2 % (42.0-52.0); HEMOGLOBIN 14.8 g/dL (14.0-18.0); IMMATURE GRAN ABSOLUTE AUTO 0.02 K/uL (0.00-0.05); IMMATURE GRAN PERCENT AUTO 0.3 % (0.0-0.4); LYMPHOCYTES ABSOLUTE AUTO 1.34 K/uL (1.00-4.80); LYMPHOCYTES PERCENT AUTO 21.3 % (24.0-44.0); MEAN CORPUSCULAR HEMOGLOBIN 30.1 pg (28.0-32.0); MEAN CORPUSCULAR HGB CONC 34.3 g/dL (32.0-36.0); MEAN PLATELET VOLUME 10.1 fL (9.4-12.4); MONOCYTES ABSOLUTE AUTO 0.46 K/uL (0.00-0.80); MONOCYTES PERCENT AUTO 7.3 % (0.0-8.0); NEUTROPHILS ABSOLUTE AUTO 4.22 K/uL (1.80-7.70); NEUTROPHILS PERCENT AUTO 67.2 % (41.0-71.0); PLATELET COUNT,PLT 255 K/uL (150-400); RED BLOOD CELL COUNT 4.91 M/uL (4.52-5.90); WHITE BLOOD CELL COUNT,WBC 6.28 K/uL (3.9-11.3)
[2024-03-17 15:27] LABS: A/G RATIO 0.9 (0.9-1.6); ALBUMIN 3.4 g/dL (3.4-5.0); BILIRUBIN TOTAL 0.8 mg/dL (0.2-1.0); CALCIUM 9.2 mg/dL (8.5-10.1); CARBON DIOXIDE,CO2 31.7 mmol/L (21.0-32.0); CREATININE 0.9 mg/dL (0.8-1.3); EST CRCL DRUG DOSING (CG) 80.15 mL/min; POTASSIUM,K 3.6 mmol/L (3.5-5.1); PROTEIN TOTAL,TP 7.3 g/dL (6.4-8.2)
[2024-03-17] MEDS: Ondansetron 4 MG/2 ML SDV IVPUSH ONE (20:55)
[2024-03-17] MEDS: Morphine 4 MG/ML Syringe IVPUSH ONE (20:55)
[2024-03-18] MEDS: Morphine 4 MG/ML Syringe IV PRN (03:16)
[2024-03-18 08:43] VITALS: BP 131/75; PULSE 84
== END 2024-03-18 10:09 ==
LOC: MW.ED 13:42
DX: S72.032A Displaced midcervical fracture of left femur, initial encounter for closed fracture (principal); Z75.8 Other problems related to medical facilities and other health care; I10 Essential (primary) hypertension; E78.00 Pure hypercholesterolemia, unspecified; K21.9 Gastro-esophageal reflux disease without esophagitis; E11.9 Type 2 diabetes mellitus without complications; Z86.16 Personal history of COVID-19; Z90.49 Acquired absence of other specified parts of digestive tract; Z79.899 Other long term (current) drug therapy; Z79.82 Long term (current) use of aspirin; W01.0XXA Fall on same level from slipping, tripping and stumbling without subsequent striking against object, initial encounter
CPT/HCPCS: 36415; 72192; 73700; 80053; 85025; 96374; 96375; 96376; 99285; J2270; J2405

== ENCOUNTER 2024-11-24 01:56 | Emergency (ER) | payer MEDICARE, MEDICAID ==
[2024-11-24 02:18] LABS: BASOPHILS ABSOLUTE AUTO 0.07 K/uL (0.00-0.20); BASOPHILS PERCENT AUTO 1.0 % (0.0-1.0); EOSINOPHILS ABSOLUTE AUTO 0.21 K/uL (0.00-0.45); EOSINOPHILS PERCENT AUTO 2.9 % (0.0-6.0); IMMATURE GRAN ABSOLUTE AUTO 0.01 K/uL (0.00-0.05); IMMATURE GRAN PERCENT AUTO 0.1 % (0.0-0.4); LYMPHOCYTES ABSOLUTE AUTO 2.46 K/uL (1.00-4.80); LYMPHOCYTES PERCENT AUTO 34.1 % (24.0-44.0); MEAN PLATELET VOLUME 9.7 fL (9.4-12.4); MONOCYTES ABSOLUTE AUTO 0.68 K/uL (0.00-0.80); MONOCYTES PERCENT AUTO 9.4 % (0.0-8.0); NEUTROPHILS ABSOLUTE AUTO 3.78 K/uL (1.80-7.70); NEUTROPHILS PERCENT AUTO 52.5 % (41.0-71.0); NRBC ABSOLUTE 0.00 K/uL (0.00-0.02); NRBC PERCENT 0.0 /100WBC (0.0-0.2); PLATELET COUNT,PLT 275 K/uL (150-400); RED BLOOD CELL COUNT 4.51 M/uL (4.52-5.90); WHITE BLOOD CELL COUNT,WBC 7.21 K/uL (3.9-11.3)
[2024-11-24] MEDS: Tetracaine HCl/PF 0.5% 4 ML Bottle EYEBOTH ONE (02:29)
[2024-11-24] MEDS: Ondansetron 4 MG/2 ML SDV IVPUSH ONE (02:29)
[2024-11-24 02:42] LABS: A/G RATIO 0.9 (0.9-1.6); ALANINE AMINOTRANSFERASE,ALT 19.0 IU/L (14-63); ASPARTATE AMNIOTRANSFERASE,AST 22.0 IU/L (15-37); BILIRUBIN TOTAL 0.6 mg/dL (0.2-1.0); BLOOD UREA NITROGEN,BUN 11.0 mg/dL (7.0-18.0); CARBON DIOXIDE,CO2 26.7 mmol/L (21.0-32.0); CHLORIDE,CL 101.0 mmol/L (98-107); CREATININE 1.0 mg/dL (0.8-1.3); EST CRCL DRUG DOSING (CG) 71.02 mL/min; GLUCOSE RANDOM 139.0 mg/dL (74-106); POTASSIUM,K 4.0 mmol/L (3.5-5.1); PROTEIN TOTAL,TP 6.9 g/dL (6.4-8.2); SODIUM,NA 136.0 mmol/L (136-148)
[2024-11-24 02:43] LABS: ESTIMATED GFR 78.0 mL/min (>60)
[2024-11-24] MEDS: Ketorolac 30 MG/ML SDV IVPUSH ONE (03:24)
[2024-11-24] MEDS: Prochlorperazine 10 MG/2 ML SDV IVPUSH ONE (03:25)
[2024-11-24] MEDS: fentaNYL 50 MCG/ML SDV IVPUSH ONE (04:13)
[2024-11-24 04:24] VITALS: BP 127/85; PULSE 89
== END 2024-11-24 04:22 | disposition home or self-care (01) ==
LOC: MW.ED 01:56
DX: G44.009 Cluster headache syndrome, unspecified, not intractable (principal); I10 Essential (primary) hypertension; E78.00 Pure hypercholesterolemia, unspecified; K21.9 Gastro-esophageal reflux disease without esophagitis; E11.9 Type 2 diabetes mellitus without complications; M19.90 Unspecified osteoarthritis, unspecified site; Z90.49 Acquired absence of other specified parts of digestive tract; Z79.84 Long term (current) use of oral hypoglycemic drugs; Z79.82 Long term (current) use of aspirin; Z79.899 Other long term (current) drug therapy
CPT/HCPCS: 36415; 70450; 71045; 80053; 82947; 83880; 84484; 85025; 93005; 96361; 96374; 96375; 99284; J0780; J1100; J1885; J2405; J3010; J7030; 93010; J3490